=== PATIENT | male | born 1985 | race African-American/Black ===

== ENCOUNTER 2024-06-20 21:15 | Emergency (ER) | payer MEDICAID, OTHER ==
[~2024-06-20] VITALS: Ht 160 cm; Wt 65.8 kg
[2024-06-20 22:39] VITALS: BP 133/87; TEMP 98.8
[2024-06-20] MEDS ORDERED: LIDOCAINE 1% INJ 50 ML MDV IJ ONE (22:41)
[2024-06-20] MEDS ORDERED: CEPH-570 PO (22:42)
[2024-06-20 22:50] VITALS: O2SAT 100
[2024-06-20] MEDS ORDERED: CEPHALEXIN MONOHYDRATE 500 MG CAPSULE PO ONE (22:53)
[2024-06-20] MEDS: CEPHALEXIN MONOHYDRATE 500 MG CAPSULE PO ONE (22:55)
== END 2024-06-20 23:49 | disposition home or self-care (01) ==
LOC: ER 21:21
DX: L03.012 Cellulitis of left finger (principal); M79.645 Pain in left finger(s); M79.89 Other specified soft tissue disorders; Z59.02 Unsheltered homelessness
CPT/HCPCS: 99283; 10060; J3490